=== PATIENT | male | born 1990 | race Two or more races ===

== ENCOUNTER 2025-10-13 20:14 | Emergency (ER) | payer MEDICAID, OTHER ==
[~2025-10-13] VITALS: Ht 170.2 cm; Wt 78.4 kg
--- NOTE | 2025-10-13 20:59 | ED.PDOC ---
Psychiatric HPI Comments 35y M who presents to the ED for chief complaint of suicidal ideations. Pt states he has been seeing things and hearing voices telling him to harm himself for the past 2x days. Pt states he drinks ETOH daily and smoked crystal meth today. Pt states he needs help getting clean and states he also wants to speak to social work professor regarding housing. Pt in the ED, denies homicidal ideations at this time. Pt states he has history of anxiety and depression. Chief Complaint: Suicidal Time Seen by MD: 20:56 Reviewed Notes: Medications, Allergies Information Source: Patient Mode of Arrival: Ambulatory Severity: Unable to Care for Self Severity of Pain: Moderate Severity of Mental Status: Moderate Severity of Symptoms: Moderate Timing: Hours Duration: Since onset Prehospital treatment: None Presents with: Depression, Unclear Thinking, Bizarre Behavior, Suicidal Ideation, Alcohol Intoxication Ingestion: Intentional, Drug(s) Ingested (methamphetamines) Circumstance: Medical Clearance Current substance abuse: Amphetamines Stressors: None Past Medical History PAST MEDICAL HISTORY: Denies Surgical History: Denies all surgeries Family History Family History: Reviewed,noncontributory to illness Social History Smoker: Non-Smoker Alcohol: Denies ETOH Use Drugs: Denies Drug Use Lives In: Home Constitutional: denies: chills, diaphoresis, fatigue, fever, malaise, sweats, weakness, others EENTM: denies: blurred vision, double vision, ear bleeding, ear discharge, ear drainage, ear pain, ear ringing, eye pain, eye redness, hearing loss, mouth pain, mouth swelling, nasal discharge, nose bleeding, nose congestion, nose pain, photophobia, tearing, throat pain, throat swelling, voice changes, others Respiratory: denies: cough, hemoptysis, orthopnea, SOB at rest, shortness of breath, SOB with excertion, stridor, wheezing, others Cardiovascular: denies: chest pain, dizzy spells, diaphoresis, Dyspnea on exertion, edema, irregular heart beat, left arm pain, lightheadedness, pa lpitations, PND, syncope, others Gastrointestinal: denies: abdomen distended, abdominal pain, blood streaked bowels, constipated, diarrhea, dysphagia, difficulty swallowing, hematemesis, melena, nausea, poor appetite, poor fluid intake, rectal bleeding, rectal pain, vomiting, others Genitourinary: denies: burning, dysuria, flank pain, frequency, hematuria, incontinence, penile discharge, penile sore, pain, testicle pain, testicle swelling, urgency, others Neurological: denies: dizziness, fainting, headache, left sided numbness, left sided weakness, numbness, paresthesia, pre-existing deficit, right sided numbness, right sided weakness, seizure, speech problems, tingling, tremors, weakness, others Musculoskeletal: denies: back pain, gout, joint pain, joint swelling, muscle pain, muscle stiffness, neck pain, others Integumetry: denies: bruises, change in color, change in hair/nails, dryness, laceration, lesions, lumps, rash, wounds, others Allergic/Immunocompromised: denies: Difficulty Healing, Frequent Infections, Hives, Itching, others Hematologic/Lymphatic: denies: anemia, blood clots, easy bleeding, easy br uising, swollen glands, others Endocrine: denies: excessive hunger, excessive sweating, excessive thirst, excessive urination, flushing, intolerance to cold, intolerance to heat, unexplained weight gain, unexplained weight loss, others Psychiatric: reports: depression, suicidal; denies: anxiety, bipolar disorder, hopeless, panic disorder, schizophrenia, sleepless, others All Other Systems: Reviewed and Negative Physical Exam General Appearance: No Apparent Distress, Normal HEENT: Normal ENT Inspection, Pharynx Normal, TMs Normal Neck: Full Range of Motion, Non-Tender, Normal, Normal Inspection Respiratory: Chest Non-Tender, Lungs Clear, No Accessory Muscle Use, No Respiratory Distress, Normal Breath Sounds Cardiovascular: No Edema, No JVD, No Murmur, No Gallop, Normal Peripheral Puls es, Regular Rate/Rhythm Breast Exam: Deferred Gastrointestinal: No Organomegaly, Non Tender, No Pulsatile Mass, Normal Bowel Sounds, Soft Genitalia: Deferred Pelvic: Deferred Rectal: Deferred Extremities: No calf tenderness, Normal capillary refill, Normal inspection, Normal range of motion, Non-tender, No pedal edema Musculoskeletal : Apperance: Normal Neurologic: Alert, department sales manager II-XII nml as Tested, No Motor Deficits, Normal Affect, Normal Mood, No Sensory Deficits Cerebellar Function: Normal Reflexes: Normal Skin: Dry, Normal Color, Warm Lymphatic: No Adenopathy Was a procedure done? Was a procedure done?: No Psych Differential Dx Psych. Differential Dx: Depression, Suicidal Intoxication Differential Dx: Drug-Induced Psychosis, Electrolyte Imbalance, Encephalopathy, Schizophrenia, Substance Abuse Disorder X-Ray, Labs, Meds, VS Vital Signs Date Time Temp Pulse Resp B/P (MAP) Pulse Ox O2 Delivery O2 Flow Rate FiO2 10/13/25 20:28 97.4 81 20 139/77 98 97.4 Lab Test 10/13/25 21:10 Range/Units White Blood Count 4.9 4.4-10.8 10^3/uL Red Blood Count 4.53 4.5-5.90 10^6/uL Hemoglobin 14.1 13.5-17.5 g/dL Hematocrit 42.1 41.0-53.0 % Mean Corpuscular Volume 92.9 80.0-100.0 fL Mean Corpuscular Hemoglobin 31.1 28.0-32.0 pg Mean Corpuscular Hemoglobin Concent 33.4 32.0-36.0 g/dL Red Cell Distribution Width 14.8 H 11.8-14.3 % Platelet Count 283 140-450 10^3/uL Mean Platelet Volume 8.4 6.9-10.8 fL Neutrophils (%) (Auto) 42.9 37.0-80.0 % Lymphocytes (%) (Auto) 48.2 10.0-50.0 % Monocytes (%) (Auto) 5.9 0.0-12.0 % Eosinophils (%) (Auto) 1.7 0.0-7.0 % Basophils (%) (Auto) 1.3 0.0-2.0 % Neutrophils # (Auto) 2.1 1.6-8.6 10 ^3/uL Lymphocytes # (Auto) 2.4 0.4-5.4 10 ^3/uL Monocytes # (Auto) 0.3 0-1.3 10 ^3/uL Eosinophils # (Auto) 0.1 0-0.8 10 ^3/uL Basophils # (Auto) 0.1 0-0.2 10 ^3/uL Nucleated Red Blood Cells 0.2 % Sodium Level 143 136-145 mmol/L Potassium Level 3.6 3.5-5.1 mmol/L Chloride Level 107 98-107 mmol/L Carbon Dioxide Level 26 20-31 mmol/L Anion Gap 10 5-15 Blood Urea Nitrogen 11 9-23 mg/dL Creatinine 1.00 0.700-1.30 mg/dL Glomerular Filtration Rate Calc 100 >90 mL/min BUN/Creatinine Ratio 11.0 10.0-20.0 Serum Glucose 81 74-106 mg/dL Calcium Level 9.4 8.7-10.4 mg/dL X-Ray, Labs, Meds, VS Comment Spoke with Dr. vasquez, psychiatrist, he recommends voluntary hold and admission to psychiatric facility He recommends Zyprexa twice a day He also recommends observe patient for alcohol withdrawal Patient resting comfortably in chair from nurse station Time of 1ST Reevaluation: 21:30 Reevaluation 1ST: Unchanged Patient Education/Counseling: Diagnosis, Treatment Family Education/Counseling: No Family Present Departure 1 Departure Time of Disposition: 02:34 Impression: Primary Impression: Methamphetamine abuse Additional Impression: ETOH abuse Disposition: [address] [place] [address] Condition: Stable Critical Care Note Critical Care Time?: No Stability Stability form required: No Heart Score Heart Score: Heart Score Response (Comments) Value History N/A 0 EKG N/A 0 Age N/A 0 Risk Factors N/A 0 Troponin N/A 0 Total 0 I personally scribed for HAMMAD CHRISTIANSON (IVETTE) on 10/13/25 at 20:59. Electronically submitted by Ozzy Davalos ([facility]). I personally scribed for HAMMAD CHRISTIANSON (IVETTE) on 10/13/25 at 21:02. Electronically submitted by Ozzy Davalos ([email or web address]). HAMMAD CHRISTIANSON Oct 13, 2025 20:59
[2025-10-13 21:31] LABS: Hematocrit 42.1 % (41.0-53.0); Hemoglobin 14.1 g/dL (13.5-17.5); Mean Corpuscular Hemoglobin 31.1 pg (28.0-32.0); Mean Corpuscular Volume 92.9 fL (80.0-100.0); Nucleated Red Blood Cells % 0.2 %
[2025-10-13 21:39] LABS: Potassium 3.6 mmol/L (3.5-5.1); Sodium 143 mmol/L (136-145)
--- NOTE | 2025-10-13 21:39 | DVH ---
CHEST RADIOGRAPH Indication: cp Technique: Single frontal view of the chest was obtained Comparison: None FINDINGS/IMPRESSION: The lungs are clear. The cardiomediastinal silhouette is unremarkable. No pleural effusion or pneumothorax. No acute osseous abnormality.
[2025-10-13 21:40] LABS: Anion Gap 10 (5-15); Calcium 9.4 mg/dL (8.7-10.4); Carbon Dioxide 26 mmol/L (20-31)
[2025-10-13 21:44] LABS: Chloride 107 mmol/L (98-107)
[2025-10-13 21:45] LABS: BUN/Creatinine Ratio 11.0 (10.0-20.0); Blood Urea Nitrogen 11 mg/dL (9-23); Glucose 81 mg/dL (74-106)
--- NOTE | 2025-10-14 02:34 | DVHINCON2 ---
Date of Service if different f: Oct 14, 2025 Time of Service: 02:06 Consultation ([facility]) Consulting Physician: MICHAELA FAROOQ MD Labs Laboratory Tests Test 10/13/25 21:10 White Blood Count 4.9 10^3/uL (4.4-10.8) Red Blood Count 4.53 10^6/uL (4.5-5.90) Hemoglobin 14.1 g/dL (13.5-17.5) Hematocrit 42.1 % (41.0-53.0) Mean Corpuscular Volume 92.9 fL (80.0-100.0) Mean Corpuscular Hemoglobin 31.1 pg (28.0-32.0) Mean Corpuscular Hemoglobin Concent 33.4 g/dL (32.0-36.0) Red Cell Distribution Width 14.8 % (11.8-14.3) Platelet Count 283 10^3/uL (140-450) Mean Platelet Volume 8.4 fL (6.9-10.8) Neutrophils (%) (Auto) 42.9 % (37.0-80.0) Lymphocytes (%) (Auto) 48.2 % (10.0-50.0) Monocytes (%) (Auto) 5.9 % (0.0-12.0) Eosinophils (%) (Auto) 1.7 % (0.0-7.0) Basophils (%) (Auto) 1.3 % (0.0-2.0) Neutrophils # (Auto) 2.1 10 ^3/uL (1.6-8.6) Lymphocytes # (Auto) 2.4 10 ^3/uL (0.4-5.4) Monocytes # (Auto) 0.3 10 ^3/uL (0-1.3) Eosinophils # (Auto) 0.1 10 ^3/uL (0-0.8) Basophils # (Auto) 0.1 10 ^3/uL (0-0.2) Nucleated Red Blood Cells 0.2 % Sodium Level 143 mmol/L (136-145) Potassium Level 3.6 mmol/L (3.5-5.1) Chloride Level 107 mmol/L (98-107) Carbon Dioxide Level 26 mmol/L (20-31) Anion Gap 10 (5-15) Blood Urea Nitrogen 11 mg/dL (9-23) Creatinine 1.00 mg/dL (0.700-1.30) Glomerular Filtration Rate Calc 100 mL/min (>90) BUN/Creatinine Ratio 11.0 (10.0-20.0) Serum Glucose 81 mg/dL (74-106) Calcium Level 9.4 mg/dL (8.7-10.4) Appearance: Stated age Psychomotor activity: Restless Behavioral: Cooperative Eye contact: Intense Speech: WNL Affect: Mood Congruent Mood: Depressed, Anxious Thought processes: Linear/Goal-directed Thought content: Hallucinations (visual) Suicidal ideations: Present Homicidal ideations: Absent Orientation: Person, Place, Time, Situation Memory intact: Recent Intellect: Average Abstractability: WNL Concentration: Adequate Attention: Adequate Judgement: WNL Insight: Fair Vitals Vital Signs Date Time Temp Pulse Resp B/P (MAP) Pulse Ox O2 Delivery O2 Flow Rate FiO2 10/13/25 20:28 97.4 81 20 139/77 98 97.4 Treatment plan discussed: With staff Medication adjusted: Yes Labs ordered: No Psychotherapy provided: No Type: Voluntary History of Present Illness Reason for Consult : psychiatric evaluation Per ED Physician: heather Bridges who presents to the ED for chief complaint of suicidal ideations. Pt states he has been seeing things and hearing voices telling him to harm himself for the past 2x days. Pt states he drinks ETOH daily and smoked crystal meth today. Pt states he needs help getting clean and states he also wants to speak to mental health social worker regarding housing. Pt in the ED, denies homicidal ideations at this time. Pt states he has history of anxiety and depression. Psychiatrist HPI: The patient was seen and evaluated at [facility] ED via telepsychiatry platform. 35 yr old male reported he's been hearing voices, seeing things and having light headaches. He feels paranoid. He said he feels like spies are chasing him. He has been feeling this way the past month. He noted he avoids talking to people, but has been talking with his mother. He feels tired and weak. He gets little sleep. He reported occasional suicidal thoughts. He stated he feels unsafe being discharged home. He reported he uses crystal meth on the weekend and drinks 4-8 tall beers daily. He last used meth on Monday. He is interested in getting into rehab and getting rid of his hallucinations because he "feels really bad lately." He denied having any homicidal ideation. Past Psychiatric History : Two past hospitalizations at [facility]. Last hospitali zation two years ago at [facility]. One past suicide attempt by jumping through a window. Past Medical History: none Current Medications: None NKDA Substance use: Alcohol-drinks about 4-8 beers daily. Smokes meth every weekend. Last smoked two days ago. First smoked at age 22. Denied use of other substance use. Attended [facility] rehab in past. Four past rehabs. Last went to rehab in [place] two years ago. Social History : Lives in [place] with mother. Never . No children. 12th grade education but didn't graduate. Incarcerated for drunk in public recently, pending court on 12/08/25. Unemployed. 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 He has some suicidal thoughts is a moderate suicide risk and warrants hospitalization for further observation, stabilization and treatment. He meets criteria for involuntary hold on basis of danger to self, but agrees to voluntary admission to behavioral health unit. He may also benefit from starting zyprexa and getting into substance rehab program eventually. Plan: 1. Transfer to behavioral health unit when bed available. 2. Legal-voluntary. If patient is refusing voluntary hospitalization or no voluntary beds are available, please evaluate for 5150 involuntary hold. 3. Medication: start zyprexa 5mg BID. Monitor for alcohol withdrawals with CIWAs and consider benzos for alcohol withdrawal prevention. 4. Contact psychiatry if further evaluation or follow up is desired. 5. case discussed with ED MESH MAN Kirk Silvestre. Assessment/Diagnosis/Plan Reviewed: Labs, Medications, Previous Orders MICHAELA FAROOQ MD Oct 14, 2025 02:06
[2025-10-14] MEDS: OLANZapine 5 MG TAB PO ONE (06:18)
[2025-10-14 06:36] VITALS: PULSE 60; RESP 16; O2SAT 98
[2025-10-14 09:00] VITALS: PULSE 60; PULSE 70; RESP 15; RESP 16; O2SAT 100; O2SAT 98
[2025-10-14 09:30] LABS: Urine Protein, UAD Negative (Negative)
[2025-10-14 09:53] LABS: Amphetamine Screen, Urine Neg (NEGATIVE); Barbiturate Scree,Urine Neg (NEGATIVE); Benzodiazephine Screen, Urine Neg (NEGATIVE); Cannabinoid Screen, Urine Neg (NEGATIVE); Cocaine Screen, Urine Neg (NEGATIVE); Opiate Scree,Urine Neg (NEGATIVE); Phencyclidine Screen, Urine Neg (NEGATIVE)
[2025-10-14] MEDS: OLANZapine 5 MG TAB PO SCH (10:27)
[2025-10-14 15:19] VITALS: BP 117/72; PULSE 99; RESP 18; TEMP 98.4; O2SAT 98
== END 2025-10-14 15:45 ==
LOC: ER 20:14
DX: F15.10 Other stimulant abuse, uncomplicated (principal); F10.129 Alcohol abuse with intoxication, unspecified; R45.851 Suicidal ideations; F32.A Depression, unspecified; F17.200 Nicotine dependence, unspecified, uncomplicated; Z79.899 Other long term (current) drug therapy; Y90.9 Presence of alcohol in blood, level not specified
CPT/HCPCS: 36415; 71045; 80048; 80307; 81001; 85025

== ENCOUNTER 2025-10-23 08:55 | Emergency (ER) | payer MEDICAID ==
[~2025-10-23] VITALS: Ht 185.4 cm; Wt 90.9 kg
[2025-10-23 08:58] VITALS: BP 120/78; TEMP 98.9
--- NOTE | 2025-10-23 09:20 | ED.PDOC ---
Psychiatric HPI Comments 35 y/o M, [place], presents to the ED for CC of ETOH. EMS reports, patient is coming from an intersection where bystanders called emergency medical personal d/t patient being unsteady on his feet and appearing drowsy. Per EMS, patient reported drinking copious amounts of alcohol prior to their arrival. Upon arrival to the ED, patient is intoxicated and is unable to answer questions appropriately at this time. Chief Complaint: ETOH Time Seen by MD: 09:15 Reviewed Notes: Nurses Notes, Career Agent Notes, Allergies Information Source: Emergency Med Personnel Mode of Arrival: EMS Severity of Symptoms: Moderate Timing: Minutes Duration: Minutes Prehospital treatment: None Presents with: Alcohol Intoxication Ingestion: Intentional Current substance abuse: ETOH Associated signs and symptoms: Intoxication Past Medical History PAST MEDICAL HISTORY: Denies Surgical History: Denies all surgeries Family History Family History: Reviewed,noncontributory to illness Social History Smoker: Non-Smoker Alcohol: Denies ETOH Use Drugs: Denies Drug Use Lives In: Home Constitutional: denies: chills, diaphoresis, fatigue, fever, malaise, sweats, weakness, others EENTM: denies: blurred vision, double vision, ear bleeding, ear discharge, ear drainage, ear pain, ear ringing, eye pain, eye redness, hearing loss, mouth pain, mouth swelling, nasal discharge, nose bleeding, nose congestion, nose pain, photophobia, tearing, throat pain, throat swelling, voice changes, others Respiratory: denies: cough, hemoptysis, orthopnea, SOB at rest, shortness of breath, SOB with excertion, stridor, wheezing, others Cardiovascular: denies: chest pain, dizzy spells, diaphoresis, Dyspnea on exertion, edema, irregular heart beat, left arm pain, lightheadedness, palpitations, PND, syncope, others Gastrointestinal: denies: abdomen distended, abdominal pain, blood streaked bowels, constipated, diarrhea, dysphagia, difficulty swallowing, hematemesis, melena, nausea, poor appetite, poor fluid intake, rectal bleeding, rectal pain, vomiting, others Genitourinary: denies: burning, dysuria, flank pain, frequency, hematuria, incontinence, penile discharge, penile sore, pain, testicle pain, testicle swelling, urgency, others Neurological: denies: dizziness, fainting, headache, left sided numbness, left sided weakness, numbness, paresthesia, pre-existing deficit, right sided numbness, right sided weakness, seizure, speech problems, tingling, tremors, weakness, others Musculoskeletal: denies: back pain, gout, joint pain, joint swelling, muscle pain, muscle stiffness, neck pain, others Integumetry: denies: bruises, change in color, change in hair/nails, dryness, laceration, lesions, lumps, rash, wounds, others Allergic/Immunocompromised: denies: Difficulty Healing, Frequent Infections, Hives, Itching, others Hematologic/Lymphatic: denies: anemia, blood clots, easy bleeding, easy bruising, swollen glands, others Endocrine: denies: excessive hunger, excessive sweating, excessive thirst, excessive urination, flushing, intolerance to cold, intolerance to heat, unexplained weight gain, unexplained weight loss, others Psychiatric: denies: anxiety, bipolar disorder, depression, hopeless, panic disorder, schizophrenia, sleepless, suicidal, others All Other Systems: Reviewed and Negative Physical Exam General Appearance: No Apparent Distress, Normal, Other (drowsy appearance) HEENT: Normal ENT Inspection, Pharynx Normal Neck: Full Range of Motion, Non-Tender, Normal, Normal Inspection Respiratory: Chest Non-Tender, Lungs Clear, No Accessory Muscle Use, No Respiratory Distress, Normal Breath Sounds Cardiovascular: No Edema, No Murmur, No Gallop, Normal Peripheral Pulses, Regular Rate/Rhythm Breast Exam: Deferred Gastrointestinal: No Organomegaly, Non Tender, No Pulsatile Mass, Normal Bowel Sounds, Soft Genitalia: Deferred Pelvic: Deferred Rectal: Deferred Extremities: No calf tenderness, Normal capillary refill, Normal inspection, Normal range of motion, Non-tender, No pedal edema Musculoskeletal : Apperance: Normal Neurologic: Alert, contracting analyst II-XII nml as Tested, No Motor Deficits, Normal Affect, Normal Mood, No Sensory Deficits Cerebellar Function: Normal Reflexes: Normal Skin: Dry, Normal Color, Warm Lymphatic: No Adenopathy Was a procedure done? Was a procedure done?: No Psych Differential Dx OD Differential Dx: Alcohol Abuse, Intentional X-Ray, Labs, Meds, VS Vital Signs Date Time Temp Pulse Resp B/P (MAP) Pulse Ox O2 Delivery O2 Flow Rate FiO2 10/23/25 08:58 98.9 72 16 120/78 96 98.9 Time of 1ST Reevaluation: 09:45 Reevaluation 1ST: Unchanged Patient Education/Counseling: Diagnosis, Treatment Family Education/Counseling: No Family Present Departure 1 Departure Time of Disposition: 11:37 (Patient is now clinically sober. He is ambulating without difficulty tolerating p.o. A&O x4. We will discharge patient home with outpatient follow up) Impression: Primary Impression: Alcohol abuse Disposition: 01 HOME / SELF CARE / HOMELESS Condition: Stable Additional Instructions: You were intoxicated. It is important to only drink in moderation. If you need help quitting you can call (HELP). If your symptoms worsen or you have any other concerns then please return to the ER. Discharged With: Self Critical Care Note Critical Care Time?: No Stability Stability form required: No Heart Score Heart Score: Heart Score Response (Comments) Value History N/A 0 EKG N/A 0 Age N/A 0 Risk Factors N/A 0 Troponin N/A 0 Total 0 I personally scribed for GRAY SHELBY MD ([email or web address]) on 10/23/25 at 09:20. Electronically submitted by Dolly Zafar ([employer]). I personally scribed for GRAY SHELBY MD ([email or web address]) on 10/23/25 at 09:22. Electronically submitted by Dolly Zafar ([email or web address]). I personally scribed for GRAY SHELBY MD ([email or web address]) on 10/23/25 at 09:31. Electronically submitted by Dolly Zafar ([employer]). GRAY SHELBY MD Oct 23, 2025 09:20
[2025-10-23 10:43] VITALS: PULSE 87; RESP 20; O2SAT 98
== END 2025-10-23 11:40 | disposition home or self-care (01) ==
LOC: EDBD 08:55 → ER 08:55
DX: F10.129 Alcohol abuse with intoxication, unspecified (principal)